=== PATIENT | male | born 1995 | race Caucasian/White ===

== ENCOUNTER 2023-11-02 07:47 | Emergency (ER) | payer OTHER ==
[~2023-11-02] VITALS: Ht 188 cm; Wt 77.3 kg
[2023-11-02 07:59] VITALS: TEMP 98.1
[2023-11-02] MEDS ORDERED: NS 1,000 ML IV ONE (08:30)
[2023-11-02 08:58] LABS: PH 5.5 (5.0-8.5); URINE APPEARANCE CLEAR (CLEAR/HAZY); URINE BLOOD TRACE (NEGATIVE); URINE COLOR YELLOW (YELLOW); URINE GLUCOSE NEGATIVE (NEGATIVE); URINE KETONE NEGATIVE (NEGATIVE); URINE NITRATE NEGATIVE (NEGATIVE); URINE PROTEIN(semi-quant) NEGATIVE (NEGATIVE); URINE UROBILINOGEN 0.2 E.U/dL (0.2-1.0)
[2023-11-02 09:05] LABS: BASO % 0.3 % (0.0-2.0); EOS % 0.3 % (0.0-4.0); GRAN # 8.5 K/mm3 (1.4-6.5); GRAN % 74.5 % (42.2-75.2); HEMATOCRIT 46.4 % (42.0-52.0); HEMOGLOBIN 15.6 g/dl (13.5-18.0); LYMPH # 1.4 K/mm3 (1.2-3.4); LYMPH % 12.4 % (20.0-51.0); MEAN CELL VOLUME 89 fl (80.0-100.0); MEAN CORPUSCULAR HEMOGLOBIN 30 pg (27-31); MEAN CORPUSCULAR HGB CONC 34 g/dl (33.0-37.0); MEAN PLATELET VOLUME 9.6 fl (7.4-10.4); MONO # 1.4 K/mm3 (0.1-0.6); MONO % 12.2 % (1.7-9.3); PLATELET COUNT 247 K/mm3 (130-400); RED BLOOD COUNT 5.19 M/mm3 (4.20-5.60); REDCELL DISTRIBUTION WIDTH-CV 12.4 % (11.5-14.5)
[2023-11-02] MEDS ORDERED: Iohexol 300 - 100 ML VIAL IV ONE (09:08)
[2023-11-02] MEDS ORDERED: NS 100 ML IV SCH (09:09)
[2023-11-02 09:12] LABS: COLLECTION METHOD CLEAN CATCH
[2023-11-02 09:28] LABS: ALBUMIN 4.7 g/dL (3.5-5.0); BILIRUBIN,TOTAL 1.2 mg/dL (0.2-1.2); CALCIUM 10.2 mg/dL (8.4-10.2); CREATININE, serum 1.65 mg/dL (0.72-1.25); POTASSIUM 4.1 mEq/L (3.5-4.5); TOTAL PROTEIN 7.9 g/dl (6.2-8.1)
[2023-11-02] MEDS ORDERED: CEPHALEXIN500 M1 PO (10:28)
[2023-11-02] MEDS ORDERED: cefTRIAXone 1 G in Water For Injection,Sterile 10 ML IV ONE ×2 (10:30→11:00)
[2023-11-02] MEDS ORDERED: Ondansetron 4 MG/2 ML VIAL IV ONE (11:15)
[2023-11-02 11:19] VITALS: BP 106/69; PULSE 49
== END 2023-11-02 11:19 | disposition home or self-care (01) ==
LOC: COL.ER 07:47
PROVIDERS: Personal Emergency Response Attendant
DX: R10.13 Epigastric pain (principal)
CPT/HCPCS: J0696; J2405; J7030; Q9967